=== PATIENT | male | born 1995 | race Two or more races ===

== ENCOUNTER 2022-04-27 11:28 | Emergency (ER) | payer SELFPAY ==
[2022-04-27 13:56] LABS: CARBON DIOXIDE,CO2 27.8 mmol/L (21.0-32.0); POTASSIUM,K 3.6 mmol/L (3.5-5.1)
[2022-04-27] MEDS ORDERED: Iopamidol 755 MG/ML 500 ML Multipack Bottle IVPUSH STA (15:06)
== END 2022-04-27 17:24 | disposition home or self-care (01) ==
LOC: MW.ED 11:28
DX: J35.2 Hypertrophy of adenoids (principal); F17.210 Nicotine dependence, cigarettes, uncomplicated
CPT/HCPCS: 36415; 70360; 70491; 71045; 80053; 84484; 85025; 93005; 99284; Q9967

== ENCOUNTER 2022-10-01 10:03 | Emergency (ER) | payer BC ==
[2022-10-01 11:45] LABS: C. TRACHOMATIS BY PCR DETECTED; N. GONORRHOEAE BY PCR NOT DETECTED
[2022-10-01] MEDS ORDERED: metroNIDAZOLE 250 MG Tab PO ONE (11:56)
== END 2022-10-01 12:48 | disposition home or self-care (01) ==
LOC: MW.ED 10:03
DX: A59.9 Trichomoniasis, unspecified (principal)
CPT/HCPCS: 81001; 87491; 87591; 99283; A9270

== ENCOUNTER 2022-10-14 18:37 | Emergency (ER) | payer BC ==
[2022-10-14] MEDS ORDERED: Doxycycline 100 MG Cap PO ONE (19:09)
[2022-10-14] MEDS ORDERED: diphenhydrAMINE 50 MG Cap PO ONE (19:55)
[2022-10-14 20:34] LABS: C. TRACHOMATIS BY PCR DETECTED; N. GONORRHOEAE BY PCR NOT DETECTED
== END 2022-10-14 20:43 | disposition home or self-care (01) ==
LOC: MW.ED 18:37
DX: A74.9 Chlamydial infection, unspecified (principal)
CPT/HCPCS: 81001; 87491; 87591; 99283; A9270

== ENCOUNTER 2023-06-16 15:21 | Emergency (ER) | payer SELFPAY ==
[2023-06-16] MEDS ORDERED: Aluminum Hydroxide/Magnesium Hydroxide/Simethicone XS Susp 30 ML Cup PO STA (16:16)
== END 2023-06-16 17:06 | disposition home or self-care (01) ==
LOC: MW.ED 15:21
DX: K05.10 Chronic gingivitis, plaque induced (principal)
CPT/HCPCS: 99283; A9270

== ENCOUNTER 2023-06-22 17:32 | Emergency (ER) | payer SELFPAY | END 2023-06-22 18:23 | LOC: MW.ED 17:32 | DX: Z00.00 Encounter for general adult medical examination without abnormal findings (principal); Z72.0 Tobacco use | CPT/HCPCS: 99282; 99283 ==

== ENCOUNTER 2023-08-02 11:46 | Emergency (ER) | payer SELFPAY | END 2023-08-02 13:25 | disposition home or self-care (01) | LOC: MW.ED 11:46 | DX: L02.213 Cutaneous abscess of chest wall (principal) | CPT/HCPCS: 10060; 99282; 99283 ==

== ENCOUNTER 2024-04-06 15:43 | Emergency (ER) | payer SELFPAY ==
[2024-04-06] MEDS: Ketorolac 30 MG/ML SDV IVPUSH ONE (16:11)
[2024-04-06] MEDS: Sodium Chloride 0.9% 1,000 ML IV ONE (16:11)
[2024-04-06 16:19] LABS: BASOPHILS ABSOLUTE AUTO 0.07 K/uL (0.00-0.20); EOSINOPHILS ABSOLUTE AUTO 0.22 K/uL (0.00-0.45); EOSINOPHILS PERCENT AUTO 3.2 % (0.0-6.0); HEMATOCRIT 47.2 % (42.0-52.0); HEMOGLOBIN 16.7 g/dL (14.0-18.0); LYMPHOCYTES PERCENT AUTO 34.8 % (24.0-44.0); MEAN CORPUSCULAR HEMOGLOBIN 33.1 pg (28.0-32.0); MEAN CORPUSCULAR HGB CONC 35.4 g/dL (32.0-36.0); MEAN CORPUSCULAR VOLUME 93.7 fL (83.0-99.0); MEAN PLATELET VOLUME 10.4 fL (9.4-12.4); MONOCYTES ABSOLUTE AUTO 0.48 K/uL (0.00-0.80); NEUTROPHILS ABSOLUTE AUTO 3.72 K/uL (1.80-7.70); PLATELET COUNT,PLT 261 K/uL (150-400); RED BLOOD CELL COUNT 5.04 M/uL (4.52-5.90); WHITE BLOOD CELL COUNT,WBC 6.89 K/uL (3.9-11.3)
[2024-04-06 16:52] LABS: A/G RATIO 1.1 (0.9-1.6); ALBUMIN 3.5 g/dL (3.4-5.0); BILIRUBIN TOTAL 0.2 mg/dL (0.2-1.0); CALCIUM 8.7 mg/dL (8.5-10.1); CREATININE 1.1 mg/dL (0.8-1.3); EST CRCL DRUG DOSING (CG) 98.19 mL/min; POTASSIUM,K 3.7 mmol/L (3.5-5.1); PROTEIN TOTAL,TP 6.8 g/dL (6.4-8.2)
[2024-04-06 17:00] LABS: APPEARANCE,URINE CLEAR; BILIRUBIN,URINE NEGATIVE (NEGATIVE); COLOR,URINE YELLOW; GLUCOSE,URINE NEGATIVE (NEGATIVE); KETONES,URINE NEGATIVE (NEGATIVE); LEUKOCYTE ESTERASE,URINE NEGATIVE (NEGATIVE); NITRITE,URINE NEGATIVE (NEGATIVE); OCCULT BLOOD,URINE SMALL (NEGATIVE); PH,URINE 6.5 (5.0-8.0); PROTEIN,URINE NEGATIVE (NEGATIVE); UROBILINOGEN,URINE 0.2 EU/dL (<2.0)
[2024-04-06 17:17] LABS: BACTERIA,URINE FEW (NEGATIVE); EPITHELIAL CELLS,URINE RARE (NONE-FEW); MUCUS,URINE LIGHT (NONE-MOD); WBC,URINE 0-3 (0-5/HPF)
[2024-04-06 17:50] LABS: C. TRACHOMATIS BY PCR NOT DETECTED; N. GONORRHOEAE BY PCR NOT DETECTED
[2024-04-06] MEDS: methylPREDNISolone Sodium Succinate 125 MG/2 ML SDV IVPUSH ONE (19:14)
[2024-04-06] MEDS: diphenhydrAMINE 50 MG/ML SDV IVPUSH ONE (19:14)
[2024-04-06] MEDS: Famotidine 20 MG/2 ML SDV IVPUSH ONE (19:14)
[2024-04-06] MEDS: Iopamidol 755 MG/ML 500 ML Multipack Bottle IVPUSH STA (19:22)
== END 2024-04-06 21:01 | disposition left against medical advice (07) ==
LOC: MW.ED 15:43
DX: N20.0 Calculus of kidney (principal); Z79.899 Other long term (current) drug therapy; Z75.8 Other problems related to medical facilities and other health care; Z91.041 Radiographic dye allergy status
CPT/HCPCS: 74177; 80053; 81001; 83690; 83735; 85025; 87491; 87591; 96361; 96374; 96375; 99284; J1200; J1885; J2919; J3490; J7030; Q9967

== ENCOUNTER 2024-04-11 10:42 | Emergency (ER) | payer SELFPAY ==
[2024-04-11] MEDS: Sodium Chloride 0.9% 1,000 ML IV STA (11:06)
[2024-04-11 11:15] LABS: BASOPHILS ABSOLUTE AUTO 0.04 K/uL (0.00-0.20); BASOPHILS PERCENT AUTO 0.3 % (0.0-1.0); EOSINOPHILS ABSOLUTE AUTO 0.14 K/uL (0.00-0.45); EOSINOPHILS PERCENT AUTO 1.2 % (0.0-6.0); HEMATOCRIT 47.5 % (42.0-52.0); HEMOGLOBIN 16.6 g/dL (14.0-18.0); IMMATURE GRAN ABSOLUTE AUTO 0.03 K/uL (0.00-0.05); IMMATURE GRAN PERCENT AUTO 0.3 % (0.0-0.4); LYMPHOCYTES ABSOLUTE AUTO 1.43 K/uL (1.00-4.80); LYMPHOCYTES PERCENT AUTO 12.2 % (24.0-44.0); MEAN CORPUSCULAR HEMOGLOBIN 32.2 pg (28.0-32.0); MEAN CORPUSCULAR HGB CONC 34.9 g/dL (32.0-36.0); MEAN CORPUSCULAR VOLUME 92.2 fL (83.0-99.0); MEAN PLATELET VOLUME 10.8 fL (9.4-12.4); MONOCYTES ABSOLUTE AUTO 0.76 K/uL (0.00-0.80); MONOCYTES PERCENT AUTO 6.5 % (0.0-8.0); NEUTROPHILS ABSOLUTE AUTO 9.36 K/uL (1.80-7.70); NEUTROPHILS PERCENT AUTO 79.5 % (41.0-71.0); PLATELET COUNT,PLT 238 K/uL (150-400); RED BLOOD CELL COUNT 5.15 M/uL (4.52-5.90); WHITE BLOOD CELL COUNT,WBC 11.76 K/uL (3.9-11.3)
[2024-04-11 11:53] LABS: ALBUMIN 3.5 g/dL (3.4-5.0); BILIRUBIN TOTAL 0.5 mg/dL (0.2-1.0); CALCIUM 8.8 mg/dL (8.5-10.1); CARBON DIOXIDE,CO2 29.6 mmol/L (21.0-32.0); CREATININE 1.2 mg/dL (0.8-1.3); EST CRCL DRUG DOSING (CG) 87.08 mL/min; POTASSIUM,K 3.6 mmol/L (3.5-5.1); PROTEIN TOTAL,TP 6.9 g/dL (6.4-8.2)
[2024-04-11 12:46] LABS: APPEARANCE,URINE CLOUDY; BILIRUBIN,URINE SMALL (NEGATIVE); COLOR,URINE YELLOW; GLUCOSE,URINE NEGATIVE (NEGATIVE); KETONES,URINE NEGATIVE (NEGATIVE); LEUKOCYTE ESTERASE,URINE NEGATIVE (NEGATIVE); NITRITE,URINE POSITIVE (NEGATIVE); OCCULT BLOOD,URINE LARGE (NEGATIVE); PROTEIN,URINE 30 mg/dL (NEGATIVE); UROBILINOGEN,URINE 0.2 EU/dL (<2.0)
[2024-04-11 12:55] LABS: BACTERIA,URINE FEW (NEGATIVE); EPITHELIAL CELLS,URINE FEW (NONE-FEW); RBC,URINE TOO NUMEROUS TO CT (0-2/HPF); WBC,URINE 20-30 (0-5/HPF)
[2024-04-11] MEDS: cefTRIAXone 2 GM in Sodium Chloride 0.9% 50 ML IV STA (13:56)
[2024-04-11] MEDS: Ketorolac 30 MG/ML SDV IVPUSH STA (13:56)
[2024-04-11] MEDS: Ondansetron 4 MG/2 ML SDV IVPUSH STA (14:09)
== END 2024-04-11 15:38 | disposition home or self-care (01) ==
LOC: MW.ED 10:42
DX: N13.2 Hydronephrosis with renal and ureteral calculous obstruction (principal); N39.0 Urinary tract infection, site not specified; Z75.8 Other problems related to medical facilities and other health care; Z91.041 Radiographic dye allergy status; Z79.899 Other long term (current) drug therapy
CPT/HCPCS: 36415; 74176; 80053; 81001; 83690; 85025; 87086; 96361; 96365; 96375; 99285; J0696; J1885; J2405; J3490; J7030

== ENCOUNTER 2025-05-17 12:50 | Emergency (ER) | payer MEDICAID ==
[2025-05-17 13:13] LABS: BASOPHILS ABSOLUTE AUTO 0.05 K/uL (0.00-0.20); BASOPHILS PERCENT AUTO 0.5 % (0.0-1.0); EOSINOPHILS ABSOLUTE AUTO 0.10 K/uL (0.00-0.45); EOSINOPHILS PERCENT AUTO 1.1 % (0.0-6.0); IMMATURE GRAN ABSOLUTE AUTO 0.02 K/uL (0.00-0.05); IMMATURE GRAN PERCENT AUTO 0.2 % (0.0-0.4); LYMPHOCYTES ABSOLUTE AUTO 2.28 K/uL (1.00-4.80); LYMPHOCYTES PERCENT AUTO 24.9 % (24.0-44.0); MEAN PLATELET VOLUME 10.5 fL (9.4-12.4); MONOCYTES ABSOLUTE AUTO 0.76 K/uL (0.00-0.80); MONOCYTES PERCENT AUTO 8.3 % (0.0-8.0); NEUTROPHILS ABSOLUTE AUTO 5.94 K/uL (1.80-7.70); NEUTROPHILS PERCENT AUTO 65.0 % (41.0-71.0); NRBC ABSOLUTE 0.00 K/uL (0.00-0.02); NRBC PERCENT 0.0 /100WBC (0.0-0.2); PLATELET COUNT,PLT 255 K/uL (150-400); RED BLOOD CELL COUNT 5.27 M/uL (4.52-5.90); WHITE BLOOD CELL COUNT,WBC 9.15 K/uL (3.9-11.3)
[2025-05-17] MEDS: Alum Hydrox/Mag Hydrox/Simeth 15 ML, Lidocaine 2% 5 ML PO ONE (13:16)
[2025-05-17] MEDS: Ketorolac 30 MG/ML SDV IVPUSH ONE (13:16)
[2025-05-17] MEDS: Ondansetron 4 MG/2 ML SDV IVPUSH ONE (13:17)
[2025-05-17 13:41] LABS: A/G RATIO 1.2 (0.9-1.6); ALANINE AMINOTRANSFERASE,ALT 60.0 IU/L (14-63); ASPARTATE AMNIOTRANSFERASE,AST 30.0 IU/L (15-37); BILIRUBIN TOTAL 1.3 mg/dL (0.2-1.0); BLOOD UREA NITROGEN,BUN 14.0 mg/dL (7.0-18.0); CARBON DIOXIDE,CO2 24.6 mmol/L (21.0-32.0); CHLORIDE,CL 97.0 mmol/L (98-107); CREATININE 1.1 mg/dL (0.8-1.3); EST CRCL DRUG DOSING (CG) 89.59 mL/min; GLUCOSE RANDOM 71.0 mg/dL (74-106); POTASSIUM,K 3.5 mmol/L (3.5-5.1); PROTEIN TOTAL,TP 7.6 g/dL (6.4-8.2); SODIUM,NA 137.0 mmol/L (136-148)
[2025-05-17 13:42] LABS: ESTIMATED GFR 92.0 mL/min (>60)
[2025-05-17 14:10] LABS: GLUCOSE,URINE NEGATIVE (NEGATIVE); OCCULT BLOOD,URINE SMALL (NEGATIVE)
[2025-05-17 14:15] LABS: APPEARANCE,URINE HAZY
[2025-05-17 14:17] LABS: EPITHELIAL CELLS,URINE FEW (NONE-FEW)
== END 2025-05-17 15:05 | disposition home or self-care (01) ==
LOC: MW.ED 12:50
DX: R11.10 Vomiting, unspecified (principal); R31.9 Hematuria, unspecified; E80.7 Disorder of bilirubin metabolism, unspecified; Z91.041 Radiographic dye allergy status; Z75.3 Unavailability and inaccessibility of health-care facilities
CPT/HCPCS: 36415; 80053; 81001; 83690; 83735; 85025; 96361; 96374; 96375; 99284; A9270; J1885; J2405; J7030; 99283